=== PATIENT | female | born 1970 | race Caucasian/White ===

== ENCOUNTER 2021-04-01 12:12 | Emergency (ER) | payer OTHER, SELFPAY ==
--- NOTE | ~2021-04-01 | XR_ITS ---
EXAMINATION: XR CHEST CLINICAL INFORMATION: Cough COMPARISON: None TECHNIQUE: Frontal view of the chest was obtained. FINDINGS: No significant abnormality is noted involving the heart, lungs, mediastinum, bony thorax or soft tissues. XR/XR chest 1V IMPRESSION: Unremarkable examination.
[2021-04-01 14:47] VITALS: BP 107/46; PULSE 92; RESP 18; TEMP 37.9; O2SAT 98; BMI 21.9
[2021-04-01 15:17] LABS: Adenovirus PCR Not Detected (Not Detect.); Bordetella parapertussis PCR Not Detected (Not Detect.); Bordetella pertussis PCR Not Detected (Not Detect.); Chlamydia pneumoniae PCR Not Detected (Not Detect.); Coronavirus 229E PCR Not Detected (Not Detect.); Coronavirus HKU1 PCR Not Detected (Not Detect.); Coronavirus NL63 PCR Not Detected (Not Detect.); Coronavirus OC43 PCR Not Detected (Not Detect.); Human metapneumovirus PCR Not Detected (Not Detect.); Influenza A PCR Not Detected (Not Detect.); Influenza B PCR Not Detected (Not Detect.); Mycoplasma pneumoniae PCR Not Detected (Not Detect.); Parainfluenza 1 PCR Not Detected (Not Detect.); Parainfluenza 2 PCR Not Detected (Not Detect.); Parainfluenza 3 PCR Not Detected (Not Detect.); Parainfluenza 4 PCR Not Detected (Not Detect.); RSV PCR Not Detected (Not Detect.); Rhino/Enterovirus PCR Not Detected (Not Detect.); SARS-CoV-2 PCR Not Detected (Not Detect.)
[2021-04-01] MEDS: Acetaminophen 325 MG TABLET 975 MG PO (16:29)
--- NOTE | 2021-04-01 16:59 | ED.GENADULT ---
HPI - General Adult General Chief complaint: General Medical <TOM Lu Last Filed: 04/09/21 14:48> Stated complaint: FEVER <TOM Lu Last Filed: 04/09/21 14:48> Time Seen by Provider: 04/01/21 16:08 <TOM Lu Last Filed: 04/09/21 14:48> History of Present Illness HPI narrative: Patient complains of cough mild headache, fever for several days and cough developing over past 2 days, no chills no chest pain or shortness of breath <TOM Lu Last Filed: 04/09/21 14:48> Related Data Home medications: Home Medications Medication Instructions Recorded Confirmed acetaminophen 325 mg capsule 650 mg PO Q6H PRN 04/24/21 04/24/21 <TOM Lu Last Filed: 04/09/21 14:48> Allergies/adverse reactions: Allergies Allergy/AdvReac Type Severity Reaction Status Date / Time No Known Allergies Allergy Verified 04/24/21 15:53 <TOM Lu Last Filed: 04/09/21 14:48> Review of Systems Review of Systems: Positive for cough fever and mild headache over several days Negatives are no chills no dizziness no weakness no vision change no chest pain no shortness of breath no stiff neck no nausea vomiting or diarrhea no urinary changes no skin rash <TOM Lu Last Filed: 04/09/21 14:48> Yes all other systems are reviewed and are negative <TOM Lu Last Filed: 04/09/21 14:48> [facility] Past Medical History Source: nursing notes reviewed <TOM Lu Last Filed: 04/09/21 14:48> Physical Exam Vital Signs: Vital Signs: Last Vital Signs Temp 100.3 F 04/01/21 14:47 Pulse 92 04/01/21 14:47 Resp 18 04/01/21 14:47 BP 107/46 L 04/01/21 14:47 Pulse Ox 98 04/01/21 14:47 Body Mass Index 21.9 <TOM Lu Last Filed: 04/09/21 14:48> Vital Signs: Last Vital Signs Temp 100.3 F 04/01/21 14:47 Pulse 92 04/01/21 14:47 Resp 18 04/01/21 14:47 BP 107/46 L 04/01/21 14:47 Pulse Ox 98 04/01/21 14:47 Body Mass Index 21.9 <Jose Eubanks MD - Last Filed: 05/14/21 18:08> General appearance no acute distress The eyes are clear with no redness or discharge The pharynx is clear with moist mucous membranes Neck is supple Chest clear to auscultation bilateral Heart no murmur Abdomen soft nontender Extremities no edema Skin no rash <TOM Lu - Last Filed: 04/09/21 14:48> Course Course Course Narrative: Patient with fever for several days and developing cough is very well-appearing is tolerating p.o. is not dizzy or weak and is discharged with treatment for possible bronchitis or viral illness <TOM Lu - Last Filed: 04/09/21 14:48> I have reviewed the chart <Jose Eubanks MD - Last Filed: 05/14/21 18:08> Medical Decision Making Lab Data Labs: Lab Results 04/01/21 Range/Units 15:04 Respiratory Panel [facility] See Note Adenovirus (Rapid PCR) Not Detected (Not Detect.) B.pert (TEM-PCR) Not Detected (Not Detect.) B.parapertussis DNA PCR Not Detected (Not Detect.) C. pneumoniae DNA (PCR) Not Detected (Not Detect.) Coronavirus OC43 (PCR) Not Detected (Not Detect.) Coronavirus HKU1 (PCR) Not Detected (Not Detect.) Coronavirus 229E (PCR) Not Detected (Not Detect.) Coronavirus NL63 (PCR) Not Detected (Not Detect.) Human Metapneumovir PCR Not Detected (Not Detect.) Influenza A (RT-PCR) Not Detected (Not Detect.) Influenza B (RT-PCR) Not Detected (Not Detect.) M. pneumoniae (PCR) Not Detected (Not Detect.) Parainfluenza 1 (PCR) Not Detected (Not Detect.) Parainfluenza 2 (PCR) Not Detected (Not Detect.) Parainfluenza 3 (PCR) Not Detected (Not Detect.) Parainfluenza 4 (PCR) Not Detected (Not Detect.) RSV (PCR) Not Detected (Not Detect.) Entero/Rhino (PCR) Not Detected (Not Detect.) SARS-CoV-2 RNA (RT-PCR) Not Detected (Not Detect.) <TOM Lu - Last Filed: 04/09/21 14:48> Lab Results 04/01/21 Range/Units 15:04 Respiratory Panel [facility] See Note Adenovirus (Rapid PCR) Not Detected (Not Detect.) B.pert (TEM-PCR) Not Detected (Not Detect.) B.parapertussis DNA PCR Not Detected (Not Detect.) C. pneumoniae DNA (PCR) Not Detected (Not Detect.) Coronavirus OC43 (PCR) Not Detected (Not Detect.) Coronavirus HKU1 (PCR) Not Detected (Not Detect.) Coronavirus 229E (PCR) Not Detected (Not Detect.) Coronavirus NL63 (PCR) Not Detected (Not Detect.) Human Metapneumovir PCR Not Detected (Not Detect.) Influenza A (RT-PCR) Not Detected (Not Detect.) Influenza B (RT-PCR) Not Detected (Not Detect.) M. pneumoniae (PCR) Not Detected (Not Detect.) Parainfluenza 1 (PCR) Not Detected (Not Detect.) Parainfluenza 2 (PCR) Not Detected (Not Detect.) Parainfluenza 3 (PCR) Not Detected (Not Detect.) Parainfluenza 4 (PCR) Not Detected (Not Detect.) RSV (PCR) Not Detected (Not Detect.) Entero/Rhino (PCR) Not Detected (Not Detect.) SARS-CoV-2 RNA (RT-PCR) Not Detected (Not Detect.) <Jose Eubanks MD - Last Filed: 05/14/21 18:08> Discharge Plan Discharge Clinical Impression: Bronchitis <TOM Lu - Last Filed: 04/09/21 14:48> Patient Disposition: Home, Self-Care <TOM Lu Last Filed: 04/09/21 14:48> Additional Instructions: Chest x-ray was normal, COVID testing was negative As you have a fever and her developing a cough I wrote an antibiotic for possible bronchitis, but you may simply have a viral illness that has to run its course Return to the ER any time any worse condition or any concerns Use Tylenol and or Motrin for fever and body aches Follow with primary doctor Drink plenty fluids <TOM Lu - Last Filed: 04/09/21 14:48> Prescriptions: No Action acetaminophen 325 mg capsule 650 mg PO Q6H PRNRF: 0 <TOM Lu - Last Filed: 04/09/21 14:48> Stand Alone Forms: Work/School Release <TOM Lu - Last Filed: 04/09/21 14:48> Interventions: ED Discharge Assessment Last Done: 04/01/21 17:39 <TOM Lu - Last Filed: 04/09/21 14:48> Discharge Date/Time: 04/01/21 17:39 <TOM Lu - Last Filed: 04/09/21 14:48>
== END 2021-04-01 17:39 | disposition home or self-care (01) ==
PROVIDERS: Emergency Provider Emergency Medicine; PCP Internal Medicine
DX: J40 Bronchitis, not specified as acute or chronic (principal); Z20.822 Contact with and (suspected) exposure to COVID-19; R50.9 Fever, unspecified
CPT/HCPCS: 36415; 71045; 87633; 99283

== ENCOUNTER 2021-04-24 15:49 | Outpatient (REF) | payer OTHER, SELFPAY ==
--- NOTE | ~2021-04-24 | XR_ITS ---
EXAMINATION: XR lumbar spine 2-3V, XR thoracic spine 2V CLINICAL INFORMATION: Thoracic spine pain. Low back pain. COMPARISON: None. TECHNIQUE: AP and lateral views of the thoracic spine were obtained with a swimmer's view. AP and lateral views of the lumbosacral spine were obtained with a coned lateral view of the lumbosacral junction. FINDINGS: Thoracic spine: There are 11 rib-bearing vertebral bodies. Alignment is normal. No bony abnormality is seen. Vertebral body heights are maintained. Disc spaces are normal. The paravertebral soft tissues are normal. Sacral spine: 3 views of lumbosacral spine are also normal. There are 5 lumbar type vertebral bodies. Normal alignment. No bony abnormality. Vertebral body heights are maintained. Disc spaces are normal. Posterior elements are intact. The paravertebral soft tissues are unremarkable. XR/XR thoracic spine 2V IMPRESSION: Normal examination.
--- NOTE | ~2021-04-24 | XR_ITS ---
EXAMINATION: XR lumbar spine 2-3V, XR thoracic spine 2V CLINICAL INFORMATION: Thoracic spine pain. Low back pain. COMPARISON: None. TECHNIQUE: AP and lateral views of the thoracic spine were obtained with a swimmer's view. AP and lateral views of the lumbosacral spine were obtained with a coned lateral view of the lumbosacral junction. FINDINGS: Thoracic spine: There are 11 rib-bearing vertebral bodies. Alignment is normal. No bony abnormality is seen. Vertebral body heights are maintained. Disc spaces are normal. The paravertebral soft tissues are normal. Sacral spine: 3 views of lumbosacral spine are also normal. There are 5 lumbar type vertebral bodies. Normal alignment. No bony abnormality. Vertebral body heights are maintained. Disc spaces are normal. Posterior elements are intact. The paravertebral soft tissues are unremarkable. XR/XR lumbar spine 2-3V IMPRESSION: Normal examination.
== END 2021-04-24 15:50 | disposition home or self-care (01) ==
LOC: HO.XRAY 15:49
PROVIDERS: PCP Internal Medicine; Visit Provider Nurse Practitioner Family
DX: M54.5 Low back pain (principal); M54.6 Pain in thoracic spine
CPT/HCPCS: 72070; 72100; 99212

== ENCOUNTER → 2021-06-25 09:22 | Outpatient (BNVA) | payer OTHER, SELFPAY | PROVIDERS: PCP Internal Medicine; Visit Provider Nurse Practitioner Family | DX: M54.6 Pain in thoracic spine (principal) | CPT/HCPCS: 99212 ==